=== PATIENT | male | born 1940 | race African-American/Black ===

== ENCOUNTER 2022-08-08 20:58 | Inpatient (IN) | payer OTHER ==
[~2022-08-08] VITALS: Ht 175.3 cm; Wt 77.3 kg
[2022-08-08 22:05] LABS: BASOPHILS % 0.3 % (0.0-2.0); EOSINOPHILS % 1.9 % (0.0-5.0); HEMATOCRIT. 37.4 % (42.0-52.0); HEMOGLOBIN. 12.6 g/dL (14.0-18.0); LYMPHOCYTES % 35.7 % (20.0-50.0); MEAN CORPUSCULAR VOLUME 88.7 fL (80.0-94.0); MEAN PLATELET VOLUME 8.8 fl (7.4-10.4); MONOCYTES % 9.9 % (2.0-8.0); NEUTROPHILS % 52.2 % (40.0-76.0); PLATELET 143 x1000/uL (130-400); RED BLOOD CELL COUNT 4.22 mill/uL (4.7-6.1); RED CELL DISTRIBUTION WIDTH 13.8 % (11.6-14.6)
[2022-08-08 22:12] LABS: CHLORIDE 108 mEq/L (98-107)
[2022-08-08] MEDS ORDERED: ASPIRIN 325MG TABLET PO ONE (22:15)
[2022-08-08 22:16] LABS: PROTHROMBIN TIME 10.9 sec (9.6-11.0)
[2022-08-08 22:20] LABS: ETHANOL BLOOD < 10 mg/dL
[2022-08-09 04:42] LABS: CLARITY URINE CLEAR (CLEAR); COLOR URINE YELLOW (YELLOW); KETONES URINE NEGATIVE (NEGATIVE); LEUKOCYTE ESTERASE URINE NEGATIVE (NEGATIVE); NITRITE URINE NEGATIVE (NEGATIVE); OCCULT BLOOD URINE NEGATIVE (NEGATIVE); PROTEIN URINE NEGATIVE (NEGATIVE); SPECIFIC GRAVITY URINE 1.036 (1.005-1.030)
[2022-08-09 04:52] LABS: *AMPHETAMINES SCREEN URINE NEGATIVE (NEGATIVE); *BARBITURATES SCREEN URINE NEGATIVE (NEGATIVE); *BENZODIAZEPINES SCREEN URINE NEGATIVE (NEGATIVE); *COCAINE SCREEN URINE NEGATIVE (NEGATIVE); CANNABINOID URINE SCREEN NEGATIVE (NEGATIVE); METHADONE URINE SCREEN NEGATIVE (NEGATIVE); OPIATES URINE SCREEN NEGATIVE (NEGATIVE); PHENCYCLIDINE URINE SCREEN NEGATIVE (NEGATIVE)
[2022-08-09] MEDS ORDERED: ACETAMINOPHEN 325MG TABLET PO PRN (10:45)
[2022-08-09] MEDS ORDERED: DOCUSATE SODIUM 100MG CAPSULE PO PRN (10:45)
[2022-08-09] MEDS ORDERED: ONDANSETRON HCL 4MG/2ML INJ IV PRN (10:45)
[2022-08-09 13:00] VITALS: BP 139/87
[2022-08-09] MEDS: ENOXAPARIN 40MG/0.4ML SYR SUBCUT SCH (14:53)
[2022-08-09 16:00] VITALS: BP 139/87
[2022-08-09 17:53] LABS: CREATINE KINASE MB FRACTION 2.7 ng/mL (0.5-3.6)
[2022-08-09] MEDS ORDERED: BENA10TA74 MT (18:24)
[2022-08-09 20:00] VITALS: BP 136/87
[2022-08-09] MEDS: ACYCLOVIR 400 MG TABLET PO SCH (23:23)
[2022-08-09 23:48] LABS: CREATINE KINASE MB FRACTION 2.1 ng/mL (0.5-3.6)
[2022-08-10] VITALS: BP 118/55
[2022-08-10 04:00] VITALS: BP 150/86
[2022-08-10 08:00] VITALS: BP 149/99
[2022-08-10] MEDS: ACYCLOVIR 400 MG TABLET PO SCH ×3 (08:21→17:03)
[2022-08-10] MEDS ORDERED: BENAZEPRIL 10MG TABLET PO SCH (09:15)
[2022-08-10 12:00] VITALS: BP 122/75
[2022-08-10] MEDS: ENOXAPARIN 40MG/0.4ML SYR SUBCUT SCH (12:13)
[2022-08-10] MEDS ORDERED: ACYC200C31 PO (13:36)
[2022-08-10] MEDS ORDERED: ASPI-1406 MT (13:37)
[2022-08-10 15:29] VITALS: BP 129/90
== END 2022-08-10 18:00 | disposition home or self-care (01) | DRG 74 ==
LOC: ER 23:02 → EDBEDREQTM 08-09 01:42 → EDBEDREQ 08-09 01:42 → SUPCPDRO 08-09 09:48 → 3WST 08-09 12:41
PROVIDERS: ADMIT Internal Medicine; ATTEND Internal Medicine
DX: G51.0 Bell's palsy (principal); I10 Essential (primary) hypertension; Z20.822 Contact with and (suspected) exposure to COVID-19
CPT/HCPCS: 36415; 70496; 70498; 70551; 71045; 80053; 80305; 80320; 81003; 82550; 82553; 84484; 85025; 87426; 93005; 93306; 99291; J1650; G0480